=== PATIENT | male | born 1960 | race Caucasian/White ===

== ENCOUNTER 2022-08-19 13:25 | Emergency (ER) | payer OTHER, SELFPAY ==
--- NOTE | ~2022-08-19 | XR_ITS ---
EXAMINATION: XR chest 2V DATE: 08/19/2022 14:10 INDICATION: Lower limb swelling TECHNIQUE: PA and lateral views of the chest are obtained. COMPARISON: None available FINDINGS: There are airspace opacities of the right middle and lower lobes. No pleural effusion or pn eumothorax. The cardiomediastinal silhouette is normal. There is severe thoracic spondylosis. IMPRESSION: 1. Airspace opacities of the right middle and lower lobes, consistent with atelectasis versus pneumon ia. Reviewed, dictated and finalized at location L. IMPRESSION: 1. Airspace opacities of the right middle and lower lobes, consistent with atel ectasis versus pneumonia.
[2022-08-19 13:27] VITALS: BP 161/100; PULSE 99; RESP 18; TEMP 36.8; O2SAT 96
[2022-08-19 13:48] LABS: Basophils Absolute Auto 0.1 K/mm3 (0.0-0.1); Basophils Percent Auto 0.7 % (0.2-1.2); Eosinophils Absolute Auto 0.3 K/mm3 (0-0.3); Eosinophils Percent Auto 3.1 % (0-4.4); Hematocrit 43.2 % (42.0-52.0); Immature Granulocyte Absolute 0.01 K/mm3 (0.00-0.031); Immature Granulocyte Percent A 0.1 % (0-0.5); Lymphocytes Absolute Auto 2.05 K/mm3 (0.9-3.2); Lymphocytes Percent Auto 21.9 % (18.3-44.2); Mean Corpuscular HGB Conc 34.7 g/dl (32-36); Mean Corpuscular Hemoglobin 32.1 pg (26-34); Mean Corpuscular Volume 92.3 fl (80-100); Mean Platelet Volume 8.6 fl (7.4-10.4); Monocytes Percent Auto 10.8 % (2.6-8.5); Neutrophils Absolute Auto 5.9 K/mm3 (1.3-6.7); Neutrophils Percent Auto 63.4 % (45.5-73.1); Platelet Count Result 321 k/mm3 (150-375); Red Blood Count 4.68 M/mm3 (4.6-6.20); Red Cell Distribution Width 13.2 % (11.5-14.5); White Blood Count 9.4 K/mm3 (4.5-10.0)
[2022-08-19 13:55] LABS: Alanine Aminotransferase 38 U/L (6-50); Albumin Level 4.3 g/dL (3.5-5.1); Alkaline Phosphatase 104 U/L (38-126); Anion Gap 9 mmol/L (8-16); Aspartate Amino Transferase 33 U/L (17-59); Bilirubin,Total 0.5 mg/dL (0.2-1.3); Blood Urea Nitrogen 13 mg/dL (9-20); Calcium 9.1 mg/dL (8.4-10.2); Carbon Dioxide 21 mmol/L (22-30); Chloride 105 mmol/L (98-107); Estimated CRCL calculation 68 ml/min; Estimated Glomerular Filt Rate > 60; Glucose 101 mg/dL (65-110); Potassium 4.1 mmol/L (3.4-5.0); Sodium 135 mmol/L (137-145)
[2022-08-19 14:03] LABS: INR 1.1; Prothrombin Time 14.3 Seconds (11.1-14.7)
[2022-08-19 14:04] LABS: Partial Thromboplastin Time 31.5 SECONDS (22.3-36.8)
[2022-08-19 14:06] LABS: NT Pro B Type Natriuretic Pept 104 pg/mL (19.9-100); Troponin I < 0.012 ng/mL (0.000-0.034)
--- NOTE | 2022-08-19 14:39 | ECG_ITS ---
Measurements Intervals [place] Rate: 71 P: 68 CT: 193 QRS: -21 QRSD: 86 T: 55 QT: 395 QTc: 430 Interpretive Statements SINUS RHYTHM LOW QRS VOLTAGE IN PRECORDIAL LEADS [QRS DEFLECTION < 1.0 mV IN CHEST LEADS] POSSIBLE RIGHT VENTRICULAR CONDUCTION DELAY [RSR (QR) IN V1/V2] NO PREVIOUS ECG AVAILABLE FOR COMPARISON Electronically Signed On 08-19-2022 15:36:44 CDT by Rosamaria Bojorquez M.D.
--- NOTE | 2022-08-19 14:39 | PC.NURSE ---
patient began complaining of chest pain. this RN put in an ekg for patient
--- NOTE | 2022-08-19 16:03 | PC.NURSE ---
Pt is in doorway being loud and stating he has bugs inside his feet and body and they need to help him now . Pt is difficult to redirect. Pt is refusing to go inside room. Security called. Pt returned to room.
--- NOTE | 2022-08-19 16:11 | ED.GENADULT ---
HPI - General Adult General Chief complaint: Unspecified Stated complaint: spitting up blood and bugs Time Seen by Provider: 08/19/22 15:59 History of Present Illness HPI narrative: Patient is a 62-year-old male presenting with concerns for a bug infection . Patient states that bugs are crawling out of his toes, his legs, his spit. He is asking to spit in a cup to prove that there are bugs in it. States that he can feel from pulsing throughout his body. States that his left foot is red. Denies fevers or chills, chest pain, shortness of breath, abdominal pain, nausea or vomiting, diarrhea. Related Data Allergies Allergy/AdvReac Type Severity Reaction Status Date / Time No Known Allergies Allergy Verified 08/19/22 16:20 Review of Systems Review of Systems: All systems reviewed & are unremarkable except as noted in HPI and below Exam Narrative: GENERAL: Well-appearing, nontoxic, no acute distress HEAD: Normocephalic, atraumatic. EYES: PERRLA and EOMI. ENT: Nares clear, no rhinorrhea or epistaxis. Mucous membranes moist. NECK: Supple. CHEST: Clear to auscultation. No respiratory distress. HEART: Regular rate and rhythm. Normal peripheral pulses. ABDOMEN: Soft, nontender, nondistended EXTREMITIES: Normal range of motion. No edema. Dorsum of left foot is erythematous and warm to touch, 2+ DP pulses bilaterally, no crepitus, no abscesses, no drainage; no erythema or swelling of either calf SKIN: Warm, dry, excoriations on bilateral forearms NEURO: No focal deficits. Alert and oriented x3. PSYCH: Normal mood and affect. Course Vital Signs Vital signs: Vital Signs Temperature 98.3 F 08/19/22 13:27 Pulse Rate 99 08/19/22 13:27 Respiratory Rate 18 08/19/22 13:27 Blood Pressure 161/100 H 08/19/22 13:27 Pulse Oximetry 96 08/19/22 13:27 Oxygen Delivery Room Air 08/19/22 13:27 Temperature 98.3 F 08/19/22 13:27 Pulse Rate 99 08/19/22 13:27 Respiratory Rate 18 08/19/22 13:27 Blood Pressure 161/100 H 08/19/22 13:27 Pulse Oximetry 96 08/19/22 13:27 Oxygen Delivery Room Air 08/19/22 13:27 Medical Decision Making MDM Narrative Medical decision making narrative: Patient is a 62-year-old male presenting with concerns for systemic bugs. Patient is hypertensive, otherwise vitals are within normal limits. Exam is remarkable for the above. Concerning for a left foot cellulitis. There are no bugs appreciated. Blood work is unremarkable. There is no leukocytosis. EKG per my interpretation shows normal sinus rhythm, normal axis, no ST elevations or depressions. Chest x-ray shows no focal consolidations, effusions, pneumothorax. We will cover the patient with Bactrim and Keflex for cellulitis. No lymphangitic spread, not concerned for deeper infection. Patient is convinced that there are bugs coming out of his toes but no insects are appreciated. Patient is not seem to be acutely psychotic and he denies SI or HI so I feel he is safe for outpatient management. Advised that he follow-up closely with his PCP. Appropriate return precautions given. Discharged in stable condition. Differential Diagnosis Differential Diagnosis: Cellulitis, abscess, CHF, peripheral lymphedema Medical Records Medical records reviewed: Yes I reviewed the external patient's medical records. Vital Signs Vital Signs: Vital Signs Temperature 98.3 F 08/19/22 13:27 Pulse Rate 99 08/19/22 13:27 Respiratory Rate 18 08/19/22 13:27 Blood Pressure 161/100 H 08/19/22 13:27 Pulse Oximetry 96 08/19/22 13:27 Oxygen Delivery Room Air 08/19/22 13:27 Temperature 98.3 F 08/19/22 13:27 Pulse Rate 99 08/19/22 13:27 Respiratory Rate 18 08/19/22 13:27 Blood Pressure 161/100 H 08/19/22 13:27 Pulse Oximetry 96 08/19/22 13:27 Oxygen Delivery Room Air 08/19/22 13:27 Lab Data Lab results reviewed: Yes I reviewed the patient's lab results. 08/19/22 13:36 08/19/22 1
--- NOTE | 2023-08-13 12:15 | ED.GENADULT ---
HPI - General Adult General Chief complaint: Unspecified Stated complaint: spitting up blood and bugs Time Seen by Provider: 08/19/22 15:59 Related Data Home Medications Medication Instructions Recorded Confirmed No Home Medications 08/13/23 08/13/23 Allergies Allergy/AdvReac Type Severity Reaction Status Date / Time No Known Allergies Allergy Verified 08/19/22 16:20 Course Vital Signs Vital signs: Vital Signs Temperature 36.8 C 08/19/22 13:27 Pulse Rate 99 08/19/22 13:27 Respiratory Rate 18 08/19/22 13:27 Blood Pressure 161/100 H 08/19/22 13:27 Pulse Oximetry 96 08/19/22 13:27 Oxygen Delivery Room Air 08/19/22 13:27 Temperature 36.8 C 08/19/22 13:27 Pulse Rate 99 08/19/22 13:27 Respiratory Rate 18 08/19/22 13:27 Blood Pressure 161/100 H 08/19/22 13:27 Pulse Oximetry 96 08/19/22 13:27 Oxygen Delivery Room Air 08/19/22 13:27 Medical Decision Making Vital Signs Vital Signs: Vital Signs Temperature 36.8 C 08/19/22 13:27 Pulse Rate 99 08/19/22 13:27 Respiratory Rate 18 08/19/22 13:27 Blood Pressure 161/100 H 08/19/22 13:27 Pulse Oximetry 96 08/19/22 13:27 Oxygen Delivery Room Air 08/19/22 13:27 Temperature 36.8 C 08/19/22 13:27 Pulse Rate 99 08/19/22 13:27 Respiratory Rate 18 08/19/22 13:27 Blood Pressure 161/100 H 08/19/22 13:27 Pulse Oximetry 96 08/19/22 13:27 Oxygen Delivery Room Air 08/19/22 13:27 Lab Data 08/19/22 13:36 08/19/22 13:36 Labs: Lab Results 08/19/22 Range/Units 13:36 WBC 9.4 (4.5-10.0) K/mm3 RBC 4.68 (4.6-6.20) M/mm3 Hgb 15.0 (14.0-18.0) g/dL Hct 43.2 (42.0-52.0) % MCV 92.3 (80-100) fl MCH 32.1 (26-34) pg MCHC 34.7 (32-36) g/dl RDW 13.2 (11.5-14.5) % Plt Count 321 (150-375) k/mm3 MPV 8.6 (7.4-10.4) fl Immature Gran % (Auto) 0.1 (0-0.5) % Neut % (Auto) 63.4 (45.5-73.1) % Lymph % (Auto) 21.9 (18.3-44.2) % Kendall % (Auto) 10.8 H (2.6-8.5) % Eos % (Auto) 3.1 (0-4.4) % Baso % (Auto) 0.7 (0.2-1.2) % Lymph # (Auto) 2.05 (0.9-3.2) K/mm3 Kendall # (Auto) 1.0 H (0.1-0.6) K/mm3 Eos # (Auto) 0.3 (0-0.3) K/mm3 Baso # (Auto) 0.1 (0.0-0.1) K/mm3 Abs Immat Gran (auto) 0.01 (0.00-0.031) K/mm3 Absolute Neuts (auto) 5.9 (1.3-6.7) K/mm3 Absolute Nucleated RBC 0.0 (0.0-0.012) K/mm3 Nucleated RBC % 0.0 (0.0-0.2) % PT 14.3 (11.1-14.7) Seconds INR 1.1 APTT 31.5 (22.3-36.8) SECONDS Sodium 135 L (137-145) mmol/L Potassium 4.1 (3.4-5.0) mmol/L Chloride 105 (98-107) mmol/L Carbon Dioxide 21 L (22-30) mmol/L Anion Gap 9 (8-16) mmol/L BUN 13 (9-20) mg/dL Creatinine 0.80 (0.7-1.3) mg/dL Estim Creat Clear Calc 68 ml/min Estimated GFR > 60 (59 - ) Glucose 101 (65-110) mg/dL Calcium 9.1 (8.4-10.2) mg/dL Total Bilirubin 0.5 (0.2-1.3) mg/dL AST 33 (17-59) U/L ALT 38 (6-50) U/L Alkaline Phosphatase 104 (38-126) U/L Troponin I < 0.012 (0.000-0.034) ng/mL NT-Pro-B Natriuret Pep 104 H (19.9-100) pg/mL Total Protein 7.0 (6.3-8.2) g/dL Albumin 4.3 (3.5-5.1) g/dL Discharge Plan Discharge Clinical Impression: Cellulitis Patient Disposition: Home, Self-Care Condition: Stable Instructions: Antibiotic Form, Cellulitis (ED) Additional Instructions: Your exam is concerning for an infection involving your left foot. Please take the antibiotics as prescribed. If the redness continues to spread, you develop fevers or worsening pain, or other concerning symptoms arise, please return to the ER. Please follow-up closely with your PCP. Prescriptions: No Action No Home Medications Follow-up/Referrals: Oscar Maria MD [Primary Care Provider] -
== END 2022-08-19 16:36 | disposition home or self-care (01) ==
PROVIDERS: Emergency Provider Emergency Medicine; PCP Emergency Medicine
DX: L03.116 Cellulitis of left lower limb (principal); R91.8 Other nonspecific abnormal finding of lung field
CPT/HCPCS: 36415; 71046; 80053; 83880; 84484; 85025; 85610; 85730; 93005; 99284

== ENCOUNTER 2023-08-13 12:11 | Emergency (ER) | payer MEDICARE, SELFPAY ==
[2023-08-13 12:30] VITALS: BP 140/86; PULSE 102; RESP 24; TEMP 38.2; O2SAT 95
--- NOTE | 2023-08-13 12:33 | ED.SOB ---
HPI - SOB/Dyspnea General Chief Complaint: Shortness of Breath/Dyspnea Stated Complaint: Shortness of Breath Time Seen by Provider: 08/13/23 12:33 Source: patient Mode of arrival: ambulatory Limitations: no limitations History of Present Illness HPI Narrative: 63 year old male who presents to express care with complaints of 3 day history of increased shortness of breath with cough, frontal headache, body aches,and fevers. Patient reports that he has not seen Doctor for many years and has not been on medications he is suppose to take. Patient reports that he has history of HTN, COPD,and history of tobacco use, states that he has not smoked for 1-2 weeks. Patient reports that the last doctor he saw was Dr Bishop but he was 5 minute late for an appointment and they refused to see him and he never went back. Patient reports that he doesn't have any family except his sister in [place] but he doesn't know her number. Patient refuses to go to hospital by ambulance states that he will go home and secure his house and go to the ED. MD elicited complaint: shortness of breath and cough (frontal headache, peripheral edema) Pertinent past history: COPD Onset (ago): day(s) (3) Exacerbating factors: exertion Treatment prior to arrival: none Related Data Home Medications Medication Instructions Recorded Confirmed No Home Medications 08/13/23 08/13/23 Allergies Allergy/AdvReac Type Severity Reaction Status Date / Time No Known Allergies Allergy Verified 08/19/22 16:20 Review of Systems Review of Systems: CONSTITUTIONAL: Reports fever, chills, or sweats. EYES: Denies visual changes, redness, or discharge. ENT: Reports rhinorrhea, congestion,no sore throat, no otalgia.positive for headache, body aches CARDIOVASCULAR: Denies chest pain, palpitations, or edema. RESPIRATORY: Reports cough and dyspnea. GASTROINTESTINAL: Denies abdominal pain, nausea, vomiting, or diarrhea. GENITOURINARY: Denies dysuria or hematuria. SKIN: Denies rash or itching. MUSCULOSKELETAL: Denies back pain, joint pain, reports body aches, has 2+ pitting edema NEUROLOGIC: Reports headache,no numbness, generalized weakness. PSYCHIATRIC: Denies anxiety or depression. All systems reviewed & are unremarkable except as noted in HPI and below PMFSH Past Medical History Medical History (Updated 08/13/23 @ 20:37 by Maricarmen Michelle NP) Bronchitis COPD (chronic obstructive pulmonary disease) Hypertension Social History Social History (Updated 08/13/23 @ 20:32 by Maricarmen Michelle NP) Tobacco type: cigarettes Additional smoking assessment comments: Patient reports that he had not smoked for 1-2 weeks Alcohol intake: unknown Substance use type: does not use Living arrangements: alone Gender identity (if verbalized by the patient): Male Comments At time of signature, agree with nursing past medical, surgical, social and family history. There is no relevant family history pertinent to the presenting complaint Exam Narrative: GENERAL: Chronic ill appearing, well-nourished, and in some acute distress. HEAD: Normocephalic, atraumatic. EYES: PERRLA and EOMI. ENT: Nares clear, rhinorrhea no epistaxis. Mucous membranes moist.TM's normal throat pink with no lesions NECK: Supple. no lymphadenopathy CHEST: Crackles to bilateral lung bases on auscultation. cough noted with dyspnea with minimal exertion, SAO2 95% with tachypnea noted HEART: Regular rate and rhythm. No murmur heard. Normal peripheral pulses. ABDOMEN: Soft, nontender, nondistended, normal active bowel sounds. EXTREMITIES: Normal range of motion. No edema. SKIN: Warm, dry, no rash. NEURO: No focal deficits. Alert and oriented x3. Course Course Emergency Course: Patient is aware of diagnosis, understands and agrees to treatment plan.? Anticipatory guidance given.? Patient refuses to go to ER at this time per recommendation. Portions of this record may have been created with voice recognitio
--- NOTE | 2023-08-13 12:52 | PC.NURSE ---
pt is flu and covid negative. Pt informed by this radio news writer that these tests are negative and he needs a further work up in the ED. Pt states he left his house unlocked and can not go to the ED till he takes care of things. Provider informed. Provider looking for info on a family member. Pt gets up from chair and begins to leave. Pt again told he needs to go to the ED. Offered EMS. refuses. Offered to call sister. states she is in worse shape than me. pt given AMA form which he signed. Pt states he will go to the ED later, sometime. Pt walked out of clinic.
== END 2023-08-13 13:00 | disposition left against medical advice (07) ==
PROVIDERS: Emergency Provider Registered Nurse
DX: R06.02 Shortness of breath (principal); R50.9 Fever, unspecified; I10 Essential (primary) hypertension; J44.9 Chronic obstructive pulmonary disease, unspecified; Z20.822 Contact with and (suspected) exposure to COVID-19
CPT/HCPCS: 87426; 87804; 99213; G0463